=== PATIENT | female | born 1995 | race Caucasian/White ===

== ENCOUNTER 2020-06-29 20:46 | Emergency (ER) | payer OTHER ==
[~2020-06-29] VITALS: Ht 149.9 cm; Wt 59.0 kg
== END 2020-06-29 22:31 | disposition home or self-care (01) ==
LOC: ER 20:46
DX: B33.8 Other specified viral diseases (principal); B96.0 Mycoplasma pneumoniae [M. pneumoniae] as the cause of diseases classified elsewhere; R50.9 Fever, unspecified; Z20.822 Contact with and (suspected) exposure to COVID-19

== ENCOUNTER 2020-09-19 19:28 | Emergency (ER) | payer OTHER ==
[~2020-09-19] VITALS: Ht 149.9 cm; Wt 56.7 kg
[2020-09-19] MEDS ORDERED: ZITHROMAX500 MG PO (22:24)
== END 2020-09-19 22:33 | disposition home or self-care (01) ==
LOC: ER 19:28
DX: J31.2 Chronic pharyngitis (principal)

== ENCOUNTER 2022-11-11 20:16 | Emergency (ER) | payer OTHER ==
[~2022-11-11] VITALS: Ht 149.9 cm; Wt 54.4 kg
[~2022-11-11 20:16] MED LIST: ZITHROMAX500 MG PO
[2022-11-11] MEDS ORDERED: METAXALONE800 MG PO (22:06)
[2022-11-11] MEDS ORDERED: MEDROLPACK PO (22:06)
[2022-11-11] MEDS ORDERED: ADVIL DUAL ACT1 EACH PO (22:06)
== END 2022-11-11 23:21 | disposition home or self-care (01) ==
LOC: ER 20:16
DX: S76.011A Strain of muscle, fascia and tendon of right hip, initial encounter (principal); X58.XXXA Exposure to other specified factors, initial encounter; Y93.9 Activity, unspecified; Y92.89 Other specified places as the place of occurrence of the external cause; Y99.8 Other external cause status